=== PATIENT | female | born 1995 | race African-American/Black ===

== ENCOUNTER 2017-04-15 18:22 | Observation (INO) | payer MEDICAID ==
[~2017-04-15] VITALS: Ht 170.2 cm; Wt 90.7 kg
[2017-04-15] MEDS ORDERED: PNV1TABL76 PO (18:52)
[2017-04-15] MEDS ORDERED: ACETAMINOPHEN 500MG TABLET PO SCH (23:00)
[2017-04-15] MEDS ORDERED: TERBUTALINE SULFATE 1MG/ML VIAL SUBCUT PRN (23:00)
== END 2017-04-15 23:30 | disposition home or self-care (01) ==
LOC: L&D 18:22
PROVIDERS: ADMIT Specialist; ATTEND Specialist
DX: O26.893 Other specified pregnancy related conditions, third trimester (principal); R10.9 Unspecified abdominal pain; M54.5 Low back pain; Z3A.34 34 weeks gestation of pregnancy
CPT/HCPCS: 76805; 76818; G0378; J3105

== ENCOUNTER 2017-05-13 11:25 | Observation (INO) | payer MEDICAID ==
[~2017-05-13] VITALS: Ht 170.2 cm; Wt 93.4 kg
[~2017-05-13 11:25] MED LIST: PNV1TABL76 PO
== END 2017-05-13 12:20 | disposition home or self-care (01) ==
LOC: L&D 11:25
PROVIDERS: ADMIT Specialist; ATTEND Specialist
DX: O26.893 Other specified pregnancy related conditions, third trimester (principal); R10.30 Lower abdominal pain, unspecified; M54.5 Low back pain; Z3A.39 39 weeks gestation of pregnancy
CPT/HCPCS: 99281; G0378

== ENCOUNTER 2018-08-11 12:41 | Emergency (ER) | payer MEDICAID, OTHER ==
[~2018-08-11] VITALS: Ht 165.1 cm; Wt 91.0 kg
[2018-08-11 13:15] VITALS: BP 129/80
[2018-08-11 13:30] LABS: CHLORIDE 106 mEq/L (98-107)
[2018-08-11 13:31] LABS: BASOPHILS % 0.3 % (0.0-2.0); EOSINOPHILS % 2.8 % (0.0-5.0); HEMATOCRIT. 39.3 % (36.0-48.0); HEMOGLOBIN. 12.8 g/dL (12.0-16.0); LYMPHOCYTES % 16.4 % (20.0-50.0); MEAN CORPUSCULAR VOLUME 85.9 fL (81.0-99.0); MEAN PLATELET VOLUME 11.3 fl (7.4-10.4); MONOCYTES % 7.2 % (2.0-8.0); NEUTROPHILS % 73.3 % (40.0-76.0); PLATELET 242 x1000/uL (130-400); RED BLOOD CELL COUNT 4.57 mill/uL (4.2-5.4); RED CELL DISTRIBUTION WIDTH 14.5 % (11.6-14.6)
[2018-08-11 13:44] LABS: CLARITY URINE CLEAR (CLEAR); COLOR URINE YELLOW (YELLOW); KETONES URINE NEGATIVE (NEGATIVE); LEUKOCYTE ESTERASE URINE NEGATIVE (NEGATIVE); NITRITE URINE NEGATIVE (NEGATIVE); OCCULT BLOOD URINE TRACE (NEGATIVE); PH URINE 6.5 (4.5-8.0); PROTEIN URINE NEGATIVE (NEGATIVE); SPECIFIC GRAVITY URINE 1.013 (1.005-1.030); UROBILINOGEN URINE 0.2 E.U./dL (0.2-1.0)
== END 2018-08-11 15:50 | disposition home or self-care (01) ==
LOC: ER 12:41
DX: J06.9 Acute upper respiratory infection, unspecified (principal); R07.9 Chest pain, unspecified; F17.200 Nicotine dependence, unspecified, uncomplicated
CPT/HCPCS: 36415; 71045; 80048; 81025; 93005; 99284

== ENCOUNTER 2018-08-29 21:07 | Emergency (ER) | payer MEDICAID, OTHER ==
[~2018-08-29] VITALS: Ht 170.2 cm; Wt 86.0 kg
[2018-08-29] MEDS ORDERED: IBUPROFEN 800MG TABLET PO ONE (23:00)
[2018-08-29 23:07] VITALS: BP 130/79
== END 2018-08-30 00:49 | disposition home or self-care (01) ==
LOC: ER 21:07
DX: M54.9 Dorsalgia, unspecified (principal); V43.62XA Car passenger injured in collision with other type car in traffic accident, initial encounter; Y93.9 Activity, unspecified; Y92.9 Unspecified place or not applicable
CPT/HCPCS: 72100; 81025; 99283

== ENCOUNTER 2020-12-17 17:22 | Emergency (ER) | payer MEDICAID, OTHER ==
[~2020-12-17] VITALS: Ht 170.2 cm; Wt 86.0 kg
[2020-12-17 17:24] VITALS: BP 144/80
== END 2020-12-17 18:59 | disposition left against medical advice (07) ==
LOC: ER 17:31
DX: Z53.21 Procedure and treatment not carried out due to patient leaving prior to being seen by health care provider (principal); E11.9 Type 2 diabetes mellitus without complications